=== PATIENT | male | born 1990 | race Caucasian/White ===

== ENCOUNTER → 2024-06-02 10:55 | Outpatient (REF) | payer OTHER, SELFPAY | LOC: HWRAD 10:55 | PROVIDERS: ATTENDING PHYSICIAN Nurse Practitioner | DX: R74.8 Abnormal levels of other serum enzymes (principal); K76.0 Fatty (change of) liver, not elsewhere classified; R14.0 Abdominal distension (gaseous); R12 Heartburn | CPT/HCPCS: 74177; Q9967 ==

== ENCOUNTER → 2025-04-27 13:52 | Outpatient (REF) | payer OTHER, SELFPAY | LOC: RCS 13:52 | PROVIDERS: ATTENDING PHYSICIAN Student in an Organized Health Care Education/Training Program; FAMILY PHYSICIAN Nurse Practitioner Family | DX: Q23.1 Congenital insufficiency of aortic valve (principal) | CPT/HCPCS: 93306 ==

== ENCOUNTER 2025-05-18 16:57 | Day surgery (SDC) | payer OTHER, SELFPAY ==
[2025-05-18] VITALS (9 sets, daily range): BP systolic 110–128; BP diastolic 60–89
--- NOTE | 2025-05-18 12:44 | ED.GENMED ---
History of Present Illness
General
Chief Complaint: Abdominal Pain
Source: patient
Exam Limitations: none
Time Seen by Provider: 05/18/25 12:33
History of Present Illness
History of Present Illness:
35yoM with no significant past medical history presenting for evaluation of abdominal pain. Pain initially started about 24 hours ago with some mild pain in his upper abdomen which he thought may be indigestion. He is also thought he may be sore
from a recent ab workout. His pain started to gradually become worse throughout the day and became severe in the middle of the night. Pain is now starting to radiate to the right lower quadrant. Pain is worse with any sort of movement. He had a
low-grade temperature up to 100.1-100.2 this morning with some chills. He is otherwise asymptomatic and denies any vomiting, diarrhea, urinary symptoms. No previous abdominal surgeries.
Past History
Past History
ED Past Medical History: Other (bicuspid aortic valve)
ED Past Surgical History: None
Social History
Tobacco: Non-smoker
Alcohol: Occasional
Family History
Family History: Other (Father had kidney stones and diverticulitis, mother has diabetes)
Phy Exam
General Physical Exam
General Presentation: well appearing and no apparent distress
General Skin: warm and dry
General Habitus: normal
General Mental: alert
ENT Exam
ENT Exam: normocephalic
Pulmonary Exam
Pulmonary Exam: lungs clear, no respiratory distress, no rales, no crackles, no rhonchi and no wheezing
Gastrointestinal Exam
Gastrointestinal Exam: soft, non distended and other (+Generalized abdominal tenderness that is worse in the RLQ. +Rebound. )
Neurological Exam
Neurological Exam: alert
Deepak Coma Scale
Eye Opening: Spontaneous
Verbal Response: Oriented
Motor Response: Obeys Commands
GCS Total Score: 15
Skin Exam
Skin Exam: normal color and warm/dry
Psychiatric Exam
Psychiatric Exam: normal mood/affect
Course
Orders/Labs/Results
Orders:
Orders
05/18/25 Lunch
Regular
05/18/25 12:24
IV Insert/Care/Rem.- Treatment PRN
05/18/25 12:43
CT Abd/pelvis W Iv Cont Urgent
Comment:
Reason For Exam: RLQ pain, generalized abd pain
05/18/25 12:48
Complete Blood Count/With Diff Urgent
05/18/25 13:13
Comprehensive Metabolic Panel Urgent
Lipase Urgent
05/18/25 16:19
Urinalysis Reflex To Culture Urgent
Date Specimen was Collected: 05/18/25
Time Specimen was Collected: 15:01
05/18/25 16:31
Piperacillin/Tazo 4.5 Gram [Zosyn] 4.5 gram in 100 ml IV NOW
05/18/25 16:36
0.9% Sodium Chloride 1000 ml [Nss] 1,000 ml IV BOLUS
Ketorolac [Toradol] 15 mg IV NOW STA
05/18/25 16:51
Bupivacaine HCl/Epinephrine [Marcaine 0.5% W/Epi [facility] [place]] 1 cartridge .ROUTE .STK-MED ONE
05/18/25 16:53
Dexamethasone Sod Phosphate [Decadron] 20 mg .ROUTE .STK-MED ONE
Fentanyl Citrate/Pf [Sublimaze] 100 mcg .ROUTE .STK-MED ONE
Lidocaine 2% Mpf [Xylocaine Mpf 2%] 100 mg .ROUTE .STK-MED ONE
Midazolam HCl [Versed] 2 mg .ROUTE .STK-MED ONE
Ondansetron Injectable [Zofran] 4 mg .ROUTE .STK-MED ONE
Propofol [Diprivan] 20 ml .ROUTE .STK-MED
Rocuronium [place] [Rocuronium] 50 mg .ROUTE .STK-MED ONE
05/18/25 17:10
Admit Patient As Directed
Co-Sign Provider:
Level of Care: Post Proc/Surg Recovery
Assign to:: Medical/Surgical
Physician / Group: Kanu
Diagnosis: Acute appendicitis
Reason for Overnight Stay: Standard of Care
Code Status As Directed
Resuscitation Status: Full Code
Activity As Directed
Activity Level: Out of Bed-Early Mobility
Anti-embolism (ALEIDA) Hose As Directed
Type: Thigh high
Intake/ Output As Directed
Frequency: Per unit guidelines
Pneumatic Compression Sleeves As Directed
Type: Knee high
Vital Signs As Directed
Frequency: Per unit guidelines
PRN Pain Medication Management As Directed
May give lesser potent ordered pain med per pt: Yes
preference::
Protocol:: Medication orders for pain may be administered in a
manner that supports deferring to patient preference
when the pt is:
- Requesting an ordered lesser potent pain medication.
Least to most potent pain medications are defined
as: acetaminophen < NSAID < tramadol < opioids
(morphine, oxycodone, hydromorphone).
- Requesting a lesser dose of the same medication IF
ORDERED.
- Requesting a less intrusive route of administration
if both routes are prescribed by the provider (PO <
IV).
DX Deep Vein Thrombosis Video Routine
05/18/25 17:11
Rx Incentive Spirometry [RESP] Routine
Frequency: q1h while awake
# of times per hour: 10
05/18/25 17:31
Ketamine 5 ml .ROUTE .STK-MED
05/18/25 17:38
OR Pathology Routine
Pre-Operative Diagnosis: ACUTE APPENDICITIS
Post-Operative Diagnosis: SAME
Operative Procedure: LAP APPY
Surgeon: KANU
Circulating Nurse: MARIA E
Specimen Type: APPENDIX
05/18/25 17:39
Sugammadex Sodium [Bridion] 200 mg .ROUTE .STK-MED ONE
05/18/25 17:50
Propofol [Diprivan] 20 ml .ROUTE .STK-MED
05/18/25 18:00
Discharge Patient As Directed
05/18/25 18:29
Fentanyl Citrate/Pf [Sublimaze] 25 mcg IV [id number] PRN
Fentanyl Citrate/Pf [Sublimaze] 25 mcg IV PACU-Q5MPRN PRN
Fentanyl Citrate/Pf [Sublimaze] 50 mcg IV PACU-Q5MPRN PRN
Ondansetron Injectable [Zofran] 4 mg IV PACU-ONCEPRN PRN
Prochlorperazine [Compazine] 5 mg IV PACU-ONCEPRN PRN
Notify MD As Directed
Notify physician if: for SDS patients with known or suspected sleep obstructive sleep apnea, monitor in the
PACU.
Notify MD for any apneic/desaturation episodes
O2 Therapy [RESP] Urgent
Titrate/Wean O2 to maintain O2 sat greater than (%): 92
Special Instructions: -Provide supplemental oxygen to achieve O2 sat of 92% or greater.
-After 15 min, may wean O2 and discontinue if patient is able to maintain O2 sat of 92%
or greater during recovery period.
If patient is a discharge home, without oxygen therapy, notify anestheiologist if
unable to maintain O2 SAT of 92% or greater on room air for MD clearance.
05/18/25 18:30
Normosol (Mult Electrolytes) [Normosol-R/Plasmalyte-A] 1,000 ml IV PER PROTOCOL
05/18/25 19:00
Acetaminophen [Tylenol] 650 mg PO SDS-Q4HPRN PRN
Ondansetron Injectable [Zofran] 4 mg IV SDS-ONCEPRN PRN
Oxycodone [Roxicodone] 10 mg PO SDS-Q4HPRN PRN
Oxycodone [Roxicodone] 5 mg PO SDS-Q4HPRN PRN
05/19/25 18:00
Enoxaparin Sodium [Lovenox] 40 mg SC QPM
Abnormal Lab Results
05/18/25 05/18/25
12:48 13:13
RBC 4.66 L 10^6/uL
(4.70-6.10)
MCV 94.2 H fL
(80.0-94.0)
MCH 31.8 H pg
(27.0-31.0)
Absolute Lymphs (auto) 0.7 L 10^3/uL
(1.2-3.4)
Absolute Monos (auto) 0.8 H 10^3/uL
(0.1-0.6)
Neutrophils % 79.4 H %
(42.2-75.2)
Lymphocytes % 9.1 L %
(20.5-51.1)
Monocytes % 9.5 H %
(1.7-9.3)
Lipase 477 H U/L
(23-300)
05/18/25 12:48
05/18/25 13:13
Vital Signs
Initial and Last Documented VS:
Initial Vital Signs
Temp Pulse Resp BP Pulse Ox
98.8 F 89 17 117/89 99
05/18/25 12:12 05/18/25 12:12 05/18/25 12:12 05/18/25 12:12 05/18/25 12:12
Last Documented Vital Signs
Temp Pulse Resp BP Pulse Ox
98.3 F 85 18 112/60 93
05/18/25 18:16 05/18/25 18:17 05/18/25 18:17 05/18/25 18:16 05/18/25 18:41
MDM/Problems Addressed
Differential Diagnosis Includes:
35yoM here with abd pain. Started in upper abdomen yesterday and now is radiating to the RLQ. +Low grade temps at home with chills. Temperature 98.8 on arrival. He is well appearing in no distress. There is rebound tenderness on exam. Differential
diagnosis includes but is not limited to: appendicitis, cholecystitis, pancreatitis, kidney stone
Initial ED plan: Check abdominal labs, UA, and CT abdomen. He declines analgesics.
*Pulse Oximetry
SaO2: 99
Oxygen Mode of Delivery: Room air
Patient hypoxic: no (99%)
*Critical Care Note
Total Time (30-74mins, 75-104mins- exclusive of procedures): Not Applicable
Update Note
Update Note:
CT shows acute appendicitis without perforation. White count is normal. IV Zosyn ordered. Case discussed with general surgery and patient transported to the OR for appendectomy.
ED Attending Note
-
Portions of this chart may have been created with voice recognition software.� Occasional wrong word or��sound alike� substitutions may have occurred due to the inherent limitations of voice recognition software.
Discharge Plan
Departure
Patient Disposition: Admit
Date of Disposition: 05/18/25
Time of Disposition: 16:47
Presentation/result/management discussed w/ accepting MD/DO: Dr. Bobby
Discharge Problem:
Acute appendicitis
Interventions
Interventions:
*Risk Screen - Suicide Last Done: 05/18/25 12:14
*General Assessment Last Done: 05/18/25 12:14
*Neglect/Abuse Screening Last Done: 05/18/25 12:14
*ED COVID-19 Vaccine History Last Done: 05/18/25 12:14
*Nursing Disposition Last Done: 05/18/25 16:56
NW-Cpqubk-Khfqdcnecc Assessment Last Done: 05/18/25 12:39
Discharge Date and Time
Discharge Date/Time: 05/18/25 16:57
[2025-05-18 13:04] LABS: Hematocrit 43.9 % (39.0-52.0); Hemoglobin 14.8 g/dL (13.0-18.0); Mean Corp Hgb Conc. 33.7 g/dL (33.0-37.0); Mean Corpuscular Volume 94.2 fL (80.0-94.0); Nucleated Red Blood Cells % 0 % (-); Platelet Count 253 10^3/uL (130-400); Red Cell Dist. Width 11.5 % (11.5-14.5)
[2025-05-18 14:09] LABS: ALT (SGPT) 36 U/L (0-50); AST (SGOT) 24 U/L (17-59); Albumin 4.3 g/dl (3.5-5.0); Alkaline Phosphatase 53 U/L (38-126); Blood Urea Nitrogen 15 mg/dl (9-20); Calcium 9.8 mg/dl (8.4-10.2); Carbon Dioxide 26 mmol/L (22-30); Chloride 105 mmol/L (98-107); Glucose 87 mg/dl (70-99); Lipase 477 U/L (23-300); Potassium 4.1 mmol/L (3.5-5.1); Sodium 135 mmol/L (135-145); Total Protein 6.5 g/dl (6.3-8.2); eGFR > 60.00
[2025-05-18 16:26] LABS: Urine Character Clear (Clear)
[2025-05-18] MEDS: NSS 1000 IV (16:45)
[2025-05-18] MEDS: ZOSYN 100 IV (16:46)
--- NOTE | 2025-05-18 17:12 | CON.GS ---
Consultation
-
Date/Time Consultation Performed: 05/18/25
Requesting Provider: Janiya
Performing Provider: Kanu
Reason for Consultation: Acute appendicitis
Medical History
-
Chief Complaint: Abd pain
History of Present Illness:
35M 2 day hx of acute onset abd pain, began generalized and migrated to RLQ, a/w anorexia and low grade temps. Denies n/v. Denies changes to stool/urine. Never had this pain before.
Past Medical History
Past Medical History: Valvular Disease (bicuspid aortic valve)
Past Surgical History: Reviewed & Noncontributory
Social History
Tobacco: Non-Smoker
Alcohol: Occasional
Employment: Employed
Family History
Family History: Reviewed & Noncontributory
Allergies / Home Medications
Allergy/AdvReac Type Severity Reaction Status Date / Time
No Known Allergies Allergy Verified 05/18/25 12:13
�Medication �Instructions �Recorded �Confirmed �Type
ibuprofen 200 mg tablet (Advil) 200 mg PO PRN PRN pain 01/13/13 10/27/17 History
loratadine-pseudoephedrine ER 10 1 ea PO PRN PRN ALLERGIES 01/13/13 10/27/17 History
mg-240 mg tablet,extended
[id number] (Loratadine-D)
multivitamin (Daily Multiple 1 ea PO DAILY 01/13/13 10/27/17 History
tablet)
Review of Systems
-
A 10 point review of systems was completed, and was negative except as per HPI.
Physical Exam
Vital Signs
Temp Pulse Resp BP Pulse Ox
99.4 F 89 18 121/83 99
05/18/25 16:42 05/18/25 16:42 05/18/25 16:42 05/18/25 16:42 05/18/25 16:42
05/17/25 05/18/25 05/19/25
06:59 06:59 06:59
Actual Weight 104.5 kg
Body Mass Index (BMI) 0.0
Lab Results
05/18/25 12:48
05/18/25 13:13
WBC 7.9 10^3/uL (4.8-10.8) 05/18/25 12:48
Hgb 14.8 g/dL (13.0-18.0) 05/18/25 12:48
Hct 43.9 % (39.0-52.0) 05/18/25 12:48
Plt Count 253 10^3/uL (130-400) 05/18/25 12:48
Abs Immat Gran (auto) 0.0 10^3/uL (0-0.05) 05/18/25 12:48
Neutrophils % 79.4 % (42.2-75.2) H 05/18/25 12:48
Physical Exam
General: Well Developed, Well Nourished and No Apparent Distress
GI: Soft, Non Distended and Tender (mild ttp to RLQ without guarding)
Neuro: AO x 3
Psych: Calm
Data Reviewed
-
CT Scan: Image Personally Visualized and interpreted, Report Reviewed by me, Discussed with Physician and Discussed with Patient
Labs: Labs Reviewed by me, Discussed with Physician and Discussed with Patient
Assessment / Plan
-
35M with acute appendicitis
Low grade fever
RLQ ttp with migration of pain
No leukocytosis, left shift noted
CT with stranding around the appendix, no signs of perforation, no collection, no fecalith
Plan:
IV abx
OCTOR for lap appy
Informed consent obtained
--- NOTE | 2025-05-18 17:56 | OR.RPT ---
Operative Report
Operative Report
Primary Surgeon: Kanu
Pre-op Diagnosis: Acute appendicitis
Post-op Diagnosis: Same
Procedure Performed: Laparoscopic appendectomy
Anesthesia Type: GETA
Specimen / Cultures: Appendix
Estimated Blood Loss: 5cc
Complications: None immediate
Operative Findings: Mildly inflamed appendix without purulence or perforation, no free fluid in pelvis
Date of Surgery: 05/18/25
Indications: This 35M developed right lower quadrant abdominal pain and on workup was found to have acute appendicitis. Laparoscopic appendectomy was elected.
Description of procedure: The patient was placed on the operating table in the supine position. General anesthesia was induced. A time-out was completed verifying correct patient, procedure, site, positioning, and special equipment prior to
beginning this procedure. An orogastric tube was placed. The abdomen was prepped and draped in the usual sterile fashion. A stab incision was made in left upper quadrant and the Veress needle was inserted. Proper position was confirmed by aspiration
and saline meniscus test. The abdomen was insufflated with carbon dioxide to a pressure of 12 mmHg. The patient tolerated insufflation well.
A 5mm optical trocar was then inserted at the left lower quadrant. The laparoscope was inserted and the abdomen inspected. No injuries from initial trocar placement or Veress needle insertion were noted. Additional trocars were then inserted in the
following locations: a 12-mm trocar at the umbilicus and a 5-mm trocar midline in the suprapubic space. The abdomen was inspected and no abnormalities were found. The table was placed in the Trendelenburg position with the right side up. The tip of
the appendix was gently grasped with an atraumatic grasper and retracted toward the patient�s feet and abdominal wall. It was curled on itself and lateral to the cecum. The appendiceal blood supply which was controlled with the voyant device from
tip to base allowing the appendix to be reracted and allowing good exposure of the appendiceal base. Following this, a laparoscopic linear cutting stapler with a 45mm suarez load was deployed and used to transect the appendix at its base with a small
cuff of cecum. The appendix was placed in an endoscopic retrieval bag, removed through the umbilical port, and passed off the table as a specimen.
We then turned our attention to the staple line, which was noted to be hemostatic. The pelvis was inspected and no free fluid was identified. The umbilical trocar site was closed at the fascial level laparoscopically with 2-0 PDS under direct
vision. Secondary trocars were removed under direct vision and noted to be hemostatic. The laparoscope was withdrawn and the abdomen was allowed to collapse. The skin was closed with subcuticular sutures of 4-0 monocryl and topical skin adhesive.
The orogastric tube was removed.
The patient tolerated the procedure well and was taken to the postanesthesia care unit in stable condition.
[2025-05-18] MEDS: ROXICODONE 5 MG PO (19:14)
== END 2025-05-18 19:56 | disposition home or self-care (01) ==
LOC: SDS 16:57
PROVIDERS: Physician Assistant; ATTENDING PHYSICIAN Surgery; EMERGENCY PHYSICIAN Emergency Medicine; FAMILY PHYSICIAN Nurse Practitioner Family
DX: K35.80 Unspecified acute appendicitis (principal)
CPT/HCPCS: 44950; 74177; 80053; 81003; 83690; 85025; 88304; 96374; 99285; C1776; Q9967